=== PATIENT | female | born 1980 | race Caucasian/White ===

== ENCOUNTER 2020-06-23 21:36 | Emergency (ER) | payer SELFPAY ==
[~2020-06-23] VITALS: Ht 149.9 cm; Wt 63.5 kg
[2020-06-23 21:40] VITALS: BP_SYST 126
--- NOTE | 2020-06-23 21:40 | NUR ---
Patient triaged and placed in waiting room. VSS and patient appears in no acute distress at this time. Accompanied by family member, awaiting available bed, and MD notified of need for MSE.
--- NOTE | 2020-06-23 22:22 | NUR ---
Urine HCG done, results NEGATIVE.
--- NOTE | 2020-06-23 22:35 | NUR ---
Patient to ER bed 4 to gown for evaluation. Side rails up. Report given to [facility] ANTOINE.
--- NOTE | 2020-06-23 22:36 | NUR ---
Patient came to ER with family. C/O vaginal bleeding x 9 days. Per patient reported, vaginal bleeding, brown color x 9 days, Hx tube ligation. A/O,X4, lower abdominal pain, cramping, 7/10 pain, vss.
--- NOTE | 2020-06-23 22:49 | NUR ---
Blood for labwork drawn from branch account manager. Patient tolerated well.
[2020-06-23 22:54] LABS: BASOPHILS # (AUTO) 0.1 K/uL (0.0-0.2); BASOPHILS % (AUTO) 1.4 % (0.0-2.0); EOSINOPHILS # (AUTO) 0.1 K/uL (0.0-0.4); EOSINOPHILS % (AUTO) 1.8 % (0.0-4.0); HEMATOCRIT 40.2 % (36-48); HEMOGLOBIN 13.6 g/dL (12.0-16.0); LYMPHOCYTES % (AUTO) 39.4 % (20.5-51.5); MEAN CORPUSCULAR HEMOGLOBIN 30 pg (27-31); MEAN CORPUSCULAR HGB CONC 34 % (32-36); MEAN CORPUSCULAR VOLUME 89 fL (79.0-98.0); MONOCYTES # (AUTO) 0.4 K/uL (0.0-1.0); NEUTROPHILS % (AUTO) 52.4 % (40.0-70.0); PLATELET COUNT (AUTO) 273 K/uL (130-430); RED BLOOD CELL COUNT(AUTO) 4.52 MIL/uL (4.2-6.2); RED CELL DISTRIBUTION WIDTH 13.1 % (9.0-15.0); WHITE BLOOD COUNT (AUTO) 7.6 K/uL (4.8-10.8)
--- NOTE | 2020-06-23 22:56 | NUR ---
ER Dr. Paiz at bedside examining patient.
[2020-06-23] MEDS ORDERED: KETOROLAC TROMETHAMINE 30 MG VIAL IM ONE (23:00)
[2020-06-23 23:01] LABS: BILIRUBIN,URINE NEGATIVE (NEGATIVE); BLOOD, URINE 3+ (NEGATIVE); CLARITY/URINE CLEAR (CLEAR); COLOR,URINE YELLOW (YELLOW); GLUCOSE,URINE NEGATIVE (NEGATIVE); KETONES,URINE NEGATIVE (NEGATIVE); LEUKOCYTE ESTERASE ,URINE 2+ (NEGATIVE); NITRITE, URINE NEGATIVE (NEGATIVE); PROTEIN URINE NEGATIVE (NEGATIVE); UROBILINOGEN,URINE 0.2 (0.2-1.0)
[2020-06-23 23:09] LABS: BACTERIA,URINE MODERATE /HPF (None Seen); WBC,URINE >100 /HPF (0-3)
[2020-06-23 23:11] LABS: PROTHROMBIN TIME 9.9 SECS (9.5-12.5)
--- NOTE | 2020-06-23 23:18 | NUR ---
Patient transported to radiology via wheelchair, accompanied by City [employer]anner.
[2020-06-23 23:21] LABS: THYROID STIMULATING HORMONE 4.45 uIu/mL (0.36-3.74)
--- NOTE | 2020-06-24 00:58 | NUR ---
Patient given written and verbal discharge instructions and verbalizes understanding. ER MD discussed with patient the results and treatment provided. Patient in stable condition. ID arm band removed. Rx of Provera, Naprosyn and Macrobid given. Patient educated on pain management and to follow up with PMD. Pain Scale 2/10. Opportunity for questions provided and answered. Medication side effect fact sheet provided.
[2020-06-24 00:59] VITALS: BP_SYST 126
== END 2020-06-24 00:58 | disposition home or self-care (01) ==
LOC: SED 21:36
DX: N93.8 Other specified abnormal uterine and vaginal bleeding (principal); N39.0 Urinary tract infection, site not specified; R10.2 Pelvic and perineal pain
CPT/HCPCS: 36415; 76830; 81000; 81025; 84439; 84443; 84703; 85025; 85610; 85730; 87086; 96372; 99284; J1885